=== PATIENT | female | born 1995 | race Caucasian/White ===

== ENCOUNTER 2018-02-10 22:56 | Emergency (ER) | payer MEDICAID, SELFPAY ==
[2018-02-10] VITALS (12 sets, daily range): BP systolic 103–117; BP diastolic 69–97; PULSE 93–161; RESP 16–37; TEMP 37.2; O2SAT 98–99
--- NOTE | 2018-02-10 23:32 | ED.GENADUL_ITS ---
Discharge Plan Disposition Patient Disposition: HOME Condition: Improving Discharge Details Chief Complaint: ETOHWithdr Clinical Impression: Behavior disturbance, Syncope, Alcohol intoxication Primary Care Provider: Oanh Austin ED Provider: Nellie Blackwell Home Meds and New Rx's Prescriptions: No Action No Known Home Meds RF: 0 Discharge Instructions Instructions: Syncope (ED), Alcohol Intoxication (ED) Additional Instructions: Do not drink alcohol in excessive amounts or quickly as it can have serious side effects such as vomiting, headache and increase risk of injury resulting in . Drink plenty of fluids and eat a well balanced diet and get plenty of rest. Follow-up with your primary care doctor in 1 week for reevaluation as needed. Return to the emergency department with any worsening or new concerns Discharge Data Discharge Date/Time-TO BE ENTERED AT DEPARTURE: 02/11/18 01:25 Discharge Physician: Nellie Blackwell Medical Decision Making MDM Narrative Medical decision making narrative: 22-year-old female with no past medical history who presents for tearful outburst and syncopal episode after drinking a large amount of vodka in a short period of time just prior to arrival. Friends place patient in a car and drove her here to the ED where she had a brief syncopal episode in the car. Patient was wheeled back to ED room screaming and crying in a wheelchair. Her heart rate on arrival 140s. 2310 -- EKG notes a rate of 120. Sinus tachycardia. No acute ST elevation or depression. On the monitor, blood pressure 103/88, oxygen saturation 99%, temperature 99. Patient appears hysterical screaming and crying to staff and friends in room. Friends are able to state that patient became emotional about hearing a male friend was going to have sex with another person and patient drank almost 1/5 of vodka within 40 seconds which occurred approximately 1 hour ago. They deny any injury. Patient was able to be redirected and calmed down. When asked if family would be coming to the ED, and when a male friend attempted to leave, patient became hysterical again and had to be calmed down. After this, and during evaluation, patient was smiling laughing and making casual conversation. We will do a workup for syncope but I suspect her symptoms are due to drinking a large amount of alcohol and being emotionally upset. Will place an IV, check labs, bolus IV fluids, urine and observe and reassess. Patient denied any drug use and friends denied patient taking any drugs and denied any injury so therefore I do not see an indication for a urine drug screen or imaging. 0130 -- labs reviewed and noted potassium 3, will replete. Alcohol 179. HCG qual negative. Remainder of labs unremarkable. Heart rate 98. Patient and friends are requesting to go home. Patient appears more alert and less intoxicated at this time. Patient instructed on the dangers of excessive alcohol binge drinking. Instructed to follow-up with primary care doctor and return to the ER if worse. HPI - General Adult General Mode of arrival: wheelchair . Date/Time Provider Initiated Documentation: 02/10/18 23:08 . Limitations to Documentation: other (intoxicated) . Information obtained by: patient (friends at bedside) . HPI Narrative: Patient is a 22-year-old female with no past medical history who presents for being very tearful followed by syncopal episode after drinking alcohol tonight. Friends state that patient heard that a male friend of hers was going to have sex with another person and patient became upset and drank almost a full bottle of 1/5 vodka within 40 seconds which occurred within the last hour. Patient denies suicidal or homicidal ideation. Patient states she has a previous history of suicide attempt several years ago with a drug overdose. Patient states she was not thinking about harming herself or suicide tonight. Friends state they think patient did this because she became emotional. Friend states that immediately after patient finished the alcohol she began crying and became hysterical . They put her in the car to take her to the emergency department and she had a syncopal episode after crying which lasted approximately 15 seconds and then she awoke and began crying again. They deny any head or other injury. Denies vomiting. Past medical history: Negative Surgical history: Eye surgery Social history: Drinks occasional alcohol on the weekends. Denies tobacco or drug use. Medications: Denies Allergies: NKDA Related Data Home Medications Medication Instructions Recorded Confirmed Unknown [No Known Home Meds] 02/10/18 02/10/18 Allergies Allergy/AdvReac Type Severity Reaction Status Date / Time No Known Allergies Allergy Unverified 02/10/18 23:10 General Stated Complaint: ETOHWithdr AROLDO: 3 Review of Systems Review of Systems All systems reviewed & are unremarkable except as noted in HPI and below Constitutional Denies chills, Denies excessive sweating, Denies fatigue, Denies fever(s), Denies weakness and Denies weight loss Eyes Patient Reports system reviewed and no additional complaints, except as docu and Denies blurry vision ENT Denies vertigo, Denies dizziness, Denies otalgia, Denies nasal congestion, Denies sore throat and Denies throat swelling Cardiovascular Denies chest pain, Denies syncope, Denies rapid heart rate and Denies dyspnea Respiratory Denies dyspnea Gastrointestinal Denies abdominal pain, Denies diarrhea and Denies vomiting Genitourinary Denies hematuria, Denies dysuria and Denies flank pain Musculoskeletal Denies back pain and Denies joint swelling Integumentary/Breasts Denies lesions and Denies rash Neurologic Denies behavioral changes, Denies confusion, Denies vertigo, Denies dizziness, Denies syncope and Denies weakness Psychiatric Denies behavioral changes, Denies confusion and Denies depression Endocrine Denies excessive sweating and Denies fatigue Hematologic/Lymphatic Denies easy bruising and Denies lymphadenopathy Allergic/Immunologic Denies throat swelling PFSH Family History Mother No problems noted. Father Diabetes Heart disease Surgical History Eye surgery Exam Const General: in distress (Screaming and crying in the wheelchair as being brought back to ED room) severe and intoxicated appearing Nutritional Appearance: overweight Orientation: alert, awake and oriented x3 HENMT Head: normal to inspection Ears: hearing grossly normal bilaterally, external ears normal and TM's normal bilaterally General nose exam: external nose normal Face and sinus: normal facial exam Mouth: oral mucosae normal Teeth and gingiva: dentition normal Throat: posterior oropharynx normal Eyes General: appearance normal, both eyes and all related structures Eyelids: eyelids normal Pupils: PERRL EOM: EOM intact bilaterally Neck Neck: normal visual inspection Lymphatic: no lymphadenopathy noted Chest Chest: normal inspection of the chest Resp Effort & Inspection: normal respiratory effort and able to speak in complete sentences Auscultation: clear to auscultation bilaterally Cardio Rate: tachycardic Rhythm: regular rhythm GI Inspection: normal to inspection Palpation: soft, not firm, no guarding, no hepatosplenomegaly, no masses and nontender Auscultation: normal bowel sounds Back/Spine/Pelvis Back: no CVA tenderness Skin General skin exam: no rashes or lesions noted Neuro General: alert and awake Speech: speech normal Gait: normal gait Motor: muscle tone normal throughout Sensory Exam: no sensory deficits noted Extrem General: normal to inspection, full ROM and normal capillary refill Psych Appearance: disheveled Speech and Movement: other (Intoxicated, screaming and crying multiple times during evaluation) Course Vital Signs Temperature 99.0 F 02/10/18 23:04 Pulse 144 H 02/10/18 23:04 Respiratory Rate 36 H 02/10/18 23:04 Blood Pressure 103/88 02/10/18 23:04 Pulse Oximetry 99 02/10/18 23:04 Temperature 99.0 F 02/10/18 23:04 Pulse 144 H 02/10/18 23:04 Respiratory Rate 36 H 02/10/18 23:04 Blood Pressure 103/88 02/10/18 23:04 Pulse Oximetry 99 02/10/18 23:04
[2018-02-10] MEDS: Normal Saline 1,000 ML 1000 ML IV (23:35)
[2018-02-10 23:40] LABS: Abs Immature Grans 0.03 k/cumm (0.0-0.09); Absolute Basophil Count 0.03 k/cumm (0.0-0.2); Absolute Eosinophil Count 0.07 k/cumm (0.0-0.7); Absolute Lymphocyte Count 4.91 k/cumm (1.2-3.4); Absolute Monocyte Count 0.61 k/cumm (0.11-0.7); Absolute Neutrophil Count 4.38 k/cumm (1.2-6.7); Basophils % 0.3; Eosinophils % 0.7; HCT 41.6 % (36.0-46.0); HGB 14.2 g/dL (12.0-15.5); Immature Grans % 0.3; Mean Corp. HGB Concentration 34.1 g/dL (32.0-36.0); Mean Corpuscular Hemoglobin 29.5 pg (27.0-33.0); Mean Corpuscular Volume 86.5 fL (80-95); Mean Platelet Volume 10.2 fL (8.0-11.0); Monocytes % 6.1; Neutrophils % 43.6; Platelet Count 277 x1000/uL (130-400); RBC 4.81 m/cumm (4.00-5.20); RBC Distribution Width 12.6 % (11.7-14.6); White Blood Cell Count 10.03 k/cumm (4.4-10.8)
[2018-02-10 23:50] LABS: Anion Gap 15.3 mmol/L (3-11); BUN 15 mg/dL (7-18); CO2 21.7 mmol/L (21.0-32.0); CREATININE 0.93 mg/dL (0.55-1.02); Calcium 8.9 mg/dL (8.5-10.1); Chloride 102 mmol/L (98-107); ETHANOL BLOOD 179.1 mg/dL (<3); Glucose 96 mg/dL (70-100); Sodium 139 mmol/L (136-145)
[2018-02-11] VITALS: PULSE 99; RESP 16; O2SAT 97
[2018-02-11 00:01] VITALS: BP 107/82; PULSE 103; PULSE 99; RESP 9; O2SAT 97
[2018-02-11 00:10] VITALS: PULSE 101; RESP 28; O2SAT 97
[2018-02-11 00:10] LABS: HCG Qual (Serum) Negative
[2018-02-11 00:16] VITALS: BP 105/73; PULSE 104; PULSE 98; RESP 21; O2SAT 100
[2018-02-11 00:20] VITALS: PULSE 103; RESP 13; O2SAT 100
[2018-02-11] MEDS: Potassium Chloride 20 MEQ TABCR 40 MEQ PO (01:13)
== END 2018-02-11 01:25 | disposition home or self-care (01) ==
PROVIDERS: Emergency Provider Physician Assistant; PCP Internal Medicine
DX: R55 Syncope and collapse (principal); F44.9 Dissociative and conversion disorder, unspecified; F10.188 Alcohol abuse with other alcohol-induced disorder; Y90.6 Blood alcohol level of 120-199 mg/100 ml; R00.0 Tachycardia, unspecified; E87.6 Hypokalemia
CPT/HCPCS: 36415; 80048; 81025; 93005; 96360; 99284; 80320; 84703; 85025; 93010

== ENCOUNTER 2018-02-17 10:18 | Outpatient (CLI) | payer MEDICAID, SELFPAY ==
--- NOTE | 2018-02-17 10:57 | DI.US_ITS ---
SYMPTOMS/DIAGNOSIS: LT BREAST PALPABLE MASS UPPER INNER QUAD 10:00 O'CLOCK LEFT BREAST ULTRASOUND: Palpable abnormalities are noted in the upper inner quadrant. In the 10:00 o' clock position, 3 cm from the nipple, there is a superficial simple cyst measuring 7 x 9 x 11 mm. In the 8:00 o'clock position, 2 cm from the nipple, there is a 5 mm simple cyst. An additional 5 mm cyst is seen in the 9:00 o' clock position 2 cm from the nipple. No suspicious masses are identified. There is an area of fatty tissue in the 10:00 o'clock position 3 cm from the nipple which is also palpable. IMPRESSION: Category 2, negative ultrasound with benign findings of simple cysts as well as a small fatty lobule or lipoma.
== END 2018-02-17 10:38 ==
PROVIDERS: PCP Internal Medicine; Visit Provider Nurse Practitioner Adult Health
DX: N63.22 Unspecified lump in the left breast, upper inner quadrant (principal); N60.12 Diffuse cystic mastopathy of left breast; D24.2 Benign neoplasm of left breast
CPT/HCPCS: 76642

== ENCOUNTER 2018-09-06 20:25 | Outpatient (REF) | payer MEDICAID, SELFPAY ==
[2018-09-06 20:16] LABS: Abs Immature Grans 0.01 k/cumm (0.0-0.09); Absolute Basophil Count 0.02 k/cumm (0.0-0.2); Absolute Eosinophil Count 0.04 k/cumm (0.0-0.7); Absolute Lymphocyte Count 2.63 k/cumm (1.2-3.4); Absolute Monocyte Count 0.36 k/cumm (0.11-0.7); Absolute Neutrophil Count 2.54 k/cumm (1.2-6.7); Basophils % 0.4; Eosinophils % 0.7; HCT 40.6 % (36.0-46.0); HGB 13.2 g/dL (12.0-15.5); Immature Grans % 0.2; Mean Corp. HGB Concentration 32.5 g/dL (32.0-36.0); Mean Corpuscular Hemoglobin 29.2 pg (27.0-33.0); Mean Corpuscular Volume 89.8 fL (80-95); Mean Platelet Volume 11.3 fL (8.0-11.0); Monocytes % 6.4; Neutrophils % 45.3; Platelet Count 251 x1000/uL (130-400); RBC 4.52 m/cumm (4.00-5.20)
[2018-09-06 21:12] LABS: ALT 15 U/L (12-78); AST 11 U/L (15-37); Albumin 3.6 g/dL (3.4-5.0); Alkaline Phosphatase 70 U/L (46-116); Anion Gap 9.5 mmol/L (3-11); BUN 16 mg/dL (7-18); Bilirubin, Total 0.2 mg/dL (0.2-1.0); CO2 27.5 mmol/L (21.0-32.0); CREATININE 0.74 mg/dL (0.55-1.02); Calcium 8.9 mg/dL (8.5-10.1); Chloride 103 mmol/L (98-107); Glucose 93 mg/dL (70-100); Potassium 4.2 mmol/L (3.5-5.1); Sodium 140 mmol/L (136-145); TSH (W/Ref FT4) 3.38 uIU/mL (0.358-3.74); Total Protein 7.4 g/dL (6.4-8.2)
[2018-09-08 10:58] LABS: Syphilis Serology (RPR) Negative (Negative)
[2018-09-08 11:23] LABS: HIV-1/2 Ag & Ab Screen Negative (NEGAT)
[2018-09-08 11:24] LABS: Hepatitis B Surface Ag Negative (NEGAT)
[2018-09-08 11:33] LABS: Hepatitis C Ab w Rflx HCV PCR Negative (NEGAT)
[2018-09-08 11:48] LABS: Hep B Core Antibody Negative (NEGAT)
[2018-09-08 12:37] LABS: HBs Antibody, Quant <3.1 mIU/mL; Hepatitis B Surface Ab Negative
[2018-09-08 15:15] LABS: Chlamydia Result Negative; GC Result Negative; Specimen Description URINE
== END 2018-09-06 20:45 ==
LOC: NCHCN 20:25
PROVIDERS: PCP Nurse Practitioner Family; Visit Provider Nurse Practitioner Family
DX: N92.0 Excessive and frequent menstruation with regular cycle (principal); Z11.4 Encounter for screening for human immunodeficiency virus [HIV]; Z11.59 Encounter for screening for other viral diseases; Z11.3 Encounter for screening for infections with a predominantly sexual mode of transmission
CPT/HCPCS: 80053; 86704; 86706; 86803; 87340; 87389; 87491; 87591; 84443; 85025; 86592

== ENCOUNTER 2018-09-18 17:29 | Outpatient (REF) | payer MEDICAID, SELFPAY | END 2018-09-18 17:49 | LOC: NCHCN 17:29 | PROVIDERS: PCP Nurse Practitioner Family; Visit Provider Family Medicine | DX: J02.9 Acute pharyngitis, unspecified (principal) | CPT/HCPCS: 87081 ==

== ENCOUNTER 2018-10-27 00:30 | Outpatient (CLI) | payer MEDICAID, SELFPAY ==
--- NOTE | 2018-10-27 07:51 | DI.US_ITS ---
SYMPTOM/DIAGNOSIS: DYSMENORRHEA, PELVIC PAIN, R10.2 PELVIC ULTRASOUND: Transabdominal and transvaginal exams were performed. The uterus measures 6.3 by 3.2 by 3.9 cm. The endometrial stripe measures 3 mm. The ovaries are normal in size and appearance with a few small follicles seen bilaterally. There is a trace amount of fluid near the right ovary. No hydronephrosis is seen. The bladder is unremarkable as visualized. SUMMARY: Pelvic ultrasound is within normal limits.
== END 2018-10-27 00:50 ==
PROVIDERS: PCP Nurse Practitioner Family; Visit Provider Nurse Practitioner Women's Health
DX: R10.2 Pelvic and perineal pain (principal); N94.6 Dysmenorrhea, unspecified
CPT/HCPCS: 76830; 76856

== ENCOUNTER 2018-11-22 13:22 | Outpatient (REF) | payer MEDICAID, SELFPAY | END 2018-11-22 13:42 | LOC: NCHCN 13:22 | PROVIDERS: PCP Nurse Practitioner Family; Visit Provider Nurse Practitioner | DX: J02.9 Acute pharyngitis, unspecified (principal) | CPT/HCPCS: 87077; 87070 ==

== ENCOUNTER 2018-11-23 14:28 | Emergency (ER) | payer MEDICAID, SELFPAY ==
[2018-11-23] VITALS (8 sets, daily range): BP systolic 97–110; BP diastolic 55–77; PULSE 89–139; RESP 14–24; TEMP 38.5; O2SAT 96–98
--- NOTE | 2018-11-23 14:41 | DI.CT_ITS ---
SYMPTOMS/DIAGNOSIS: BI-RASTAFARIAN HEADACHE, FEVER CRANIAL CT: A noncontrast enhanced examination was performed. There is no evidence of an intra/extra-axial hemorrhage. No mass is seen. The forman-white matter differentiation is intact. The ventricles are unremarkable. There is no evidence of a skull fracture. The paranasal sinuses are intact. There is no mastoid effusion. SUMMARY: Normal noncontrast cranial CT.
[2018-11-23] MEDS: Normal Saline Flush 10 ML SYR IVP (14:45)
--- NOTE | 2018-11-23 14:45 | ED.GENADUL_ITS ---
Discharge Plan Disposition Patient Disposition: HOME Condition: Improving Discharge Details Chief Complaint: Headache Clinical Impression: Headache Primary Care Provider: Erik Emerson ED Provider: Theo Potts Home Meds and New Rx's Prescriptions: New doxycycline hyclate 100 mg capsule 100 mg PO BID 14 Days Qty: 28 RF: 0 Discharge Instructions Instructions: General Headache (ED) Additional Instructions: For any worsening symptoms you should return immediately to the emergency department for reevaluation and reconsideration of lumbar puncture due to your fever and headache. Otherwise you should take your antibiotic twice daily as prescribed for the 2 weeks and anytime you were in the sun please use sunscreen. Please follow-up with your primary care provider next week for reassessment and evaluation of your further testing for tickborne illness. Stand Alone Forms: Work Release Referrals: Erik Emerson NP [Primary Care Provider] - 5 days Discharge Data Discharge Date/Time-TO BE ENTERED AT DEPARTURE: 11/23/18 17:32 Medical Decision Making <Jai Pool MD - Last Filed: 11/23/18 15:52> 23-year-old female presents with fever and headache for 2 days time. She is febrile to 38.5 & tachycardic to the 130s with a blood pressure 110/77, oxygenating normally. No gross neurologic deficits and no evidence of meningismus on exam. IV access established, patient given 2 L of fluid, ketorolac and acetaminophen. Would consider her differential diagnosis includes viral syndrome, migraine headache, sinusitis. Does not seem consistent with acute meningitis. Laboratories obtained: Urinalysis with positive leuk esterase and bacteria. CBC unremarkable with a white count of 5, hematocrit 40, platelets 180. Chemistries notable for sodium of 135, bicarb 23, anion gap of 12, BUN 16, creatinine 0.[address] scan of the head and sinuses without acute findings. Discussed with patient the utilization of lumbar puncture to exclude meningitis. I think her likelihood of acute bacterial meningitis is low. She refuses lumbar puncture. Patient to be given second liter of fluid, dexamethasone, Benadryl, small aliquot of hydromorphone and reevaluated. Please see oncoming providers note regarding patient's final impression and disposition. <Theo Potts NP - Last Filed: 11/23/18 21:32> After second round of medications patient states that she is feeling significantly better. Did re-discuss the recommendation for lumbar puncture given the patient is complaining of a fever and headache. Patient again refused LP at this time. Thoroughly discussed risk versus benefit of lumbar puncture at this time for assistance in evaluating for possible meningitis. Again after thorough discussion she states that she does not want a lumbar puncture at this time. With further speaking to patient about history she does state that she has been in the [place] a lot and has not noted any tick bites but does state that her boyfriend has had multiple ticks bites on him during the same timeframe. she does state that it could be a possibility that she had been bitten by a tick. Tick panel was already ordered after discussion of patient's case with Dr. Pool but knowing that she is been not feeling well for the past week and is seen primary care multiple times for similar symptoms I do feel that tickborne illness is a high probability. Due to this patient was started on doxycycline pending results. Thoroughly encouraged patient to return to the emergency department for any new or significant worsening of symptoms or any further concerns and she states understanding that she may need lumbar puncture to fully evaluate her condition. Patient appears stable with no new or worsening symptoms and states that she actually feels better after her last round of medication. She is alert and oriented and able to make decisions and refused treatment, and father is at bedside during all these discussions. After discussion of diagnosis and plan of care patient and father have no further needs, questions, or concerns and states clear understanding to return to the emergency department for any worsening symptoms. HPI <Jai Pool MD - Last Filed: 11/23/18 15:52> General Mode of arrival: ambulatory . Date/Time Provider Initiated Documentation: 11/23/18 14:29 . Limitations to Documentation: no limitations . History of Present Illness 23 year old F presents to the emergency department with the chief complaint of Headache for 2 days, described as moderate and severe, Quality is described as dull and constant, and is localized to the head. Patient reports no radiation. and it has been constant. No relieving factors improve symptom(s), No exacerbating factors reported . Patient notes fever/chills and headaches; denies syncope. Patient did receive the following treatments prior to arrival, none Related Data Home Medications Medication Instructions Recorded Confirmed doxycycline hyclate 100 mg PO BID 14 Days #28 cap 11/23/18 Previous Rx's Medication Instructions Recorded doxycycline hyclate 100 mg PO BID 14 Days #28 cap 11/23/18 Allergies Allergy/AdvReac Type Severity Reaction Status Date / Time No Known Allergies Allergy Unverified 10/12/18 13:07 General Stated Complaint: Headache AROLDO: 2 Review of Systems <Jai Pool MD - Last Filed: 11/23/18 15:52> Review of Systems No fall or trauma. No stiff neck. No antecedent illness. Positive sick contacts with her mother who had pneumonia. Patient denies cough. She does state history of migraines distant. 8 of 10 systems reviewed and otherwise - PFSH <Jai Pool MD - Last Filed: 11/23/18 15:52> Medical History Anxiety and depression (Acute) Borderline personality disorder (Acute) Dysmenorrhea (Acute) Fatigue (Acute) Heavy menstrual period (Acute) History of suicide attempt (Acute) Surgical History Eye surgery Family History Mother Endometriosis Father Diabetes Heart disease Sister Endometriosis Social History Smoking/Tobacco Use Status: Never Alcohol Intake: never Drug use: Never Do you feel safe at home: Yes Do you feel safe in your relationship?: Yes Exam <Jai Pool MD - Last Filed: 11/23/18 15:52> Narrative Exam Narrative: GEN: awake, alert, oriented 3. Pleasant, well groomed, interactive. HEAD: Normocephalic, atraumatic ENT: Mucous membranes dry, oropharynx unremarkable, External ear exam unremarkable EYES: PERRL, EOMI NECK: Full ROM, no NAYANA, no menigismus-supple and with full range of motion CHEST/RESP: Nontender, clear to auscultation bilateral, no wheeze/rhonchi/rales CARDIOVASCULAR: Regular and tachycardia, no murmur, rub kavya. 2+ Rad pulse bilateral ABDOMEN: Soft, nontender, no mass. +Bowel sounds EXT: Full ROM, no edema, no rash Neuro: Grossly normal neurologic exam, conversant, interactive. Psych: Speech fluent, thoughts congruent, affect normal Course <Jai Pool MD - Last Filed: 11/23/18 15:52> Vital Signs Temperature 38.5 C H 11/23/18 14:30 Pulse 139 H 11/23/18 14:30 Respiratory Rate 18 11/23/18 14:30 Blood Pressure 110/77 11/23/18 14:30 Pulse Oximetry 98 11/23/18 14:30 Temperature 38.5 C H 11/23/18 14:30 Temperature Source Skin 11/23/18 14:30 Pulse 139 H 11/23/18 14:30 Respiratory Rate 18 11/23/18 14:30 Respiratory Effort 11/23/18 14:39 Blood Pressure 110/77 11/23/18 14:30 Blood Pressure Position Sitting 11/23/18 14:30 Pulse Oximetry 98 11/23/18 14:30 Oxygen Delivery Method Room Air 11/23/18 14:30 Oxygen Flow Rate 0 11/23/18 14:30 Pain Level 8 11/23/18 14:38 Sign Out <Jai Pool MD - Last Filed: 11/23/18 15:52> Sign Out Data: Sign Out Comment: Follow-up response to medications and fluids, reexamination Last updated by Jai Pool MD at 11/23/18 15:53
[2018-11-23] MEDS: Ketorolac 30 MG/ML VIAL IVP (14:55)
[2018-11-23] MEDS: Acetaminophen 500 MG TAB 1000 MG PO (14:55)
[2018-11-23 14:56] LABS: Absolute Basophil Count 0.01 k/cumm (0.0-0.2); Absolute Lymphocyte Count 0.77 k/cumm (1.2-3.4); Absolute Monocyte Count 0.39 k/cumm (0.11-0.7); Absolute Neutrophil Count 4.07 k/cumm (1.2-6.7); Basophils % 0.2; HCT 40.2 % (36.0-46.0); HGB 13.5 g/dL (12.0-15.5); Lymphocytes % 14.7; Mean Corp. HGB Concentration 33.6 g/dL (32.0-36.0); Mean Corpuscular Hemoglobin 29.5 pg (27.0-33.0); Mean Platelet Volume 10.2 fL (8.0-11.0); Monocytes % 7.4; Neutrophils % 77.7; Platelet Count 180 x1000/uL (130-400); RBC 4.57 m/cumm (4.00-5.20); RBC Distribution Width 12.3 % (11.7-14.6); White Blood Cell Count 5.24 k/cumm (4.4-10.8)
[2018-11-23] MEDS: Normal Saline 1,000 ML 1000 ML IV ×2 (14:57→16:11)
[2018-11-23 15:11] LABS: ALT 18 U/L (12-78); AST 13 U/L (15-37); Albumin 3.6 g/dL (3.4-5.0); Alkaline Phosphatase 62 U/L (46-116); Anion Gap 12.2 mmol/L (3-11); BUN 16 mg/dL (7-18); Bilirubin, Total 0.4 mg/dL (0.2-1.0); CO2 23.8 mmol/L (21.0-32.0); CREATININE 0.97 mg/dL (0.55-1.02); Calcium 8.8 mg/dL (8.5-10.1); Chloride 99 mmol/L (98-107); Glucose 137 mg/dL (70-100); Potassium 3.6 mmol/L (3.5-5.1); Sodium 135 mmol/L (136-145); Total Protein 8.2 g/dL (6.4-8.2)
[2018-11-23 15:15] LABS: Bilirubin Negative (Negative); Blood Negative (Negative); Clarity Sl Cloudy; Glucose Negative (Negative); Ketones Negative (Negative); Leukocyte Esterase Trace (Negative); Nitrite Negative (Negative); Specific Gravity 1.025 (1.005-1.025); Urobilinogen 0.2 EU/dL (Up TO 0.2)
[2018-11-23 15:25] LABS: Bacteria Moderate HPF (Negative); C & S Indicated? No/Sq. Contamination; Epithelial Cells Many HPF (Negative); Mucus Moderate (Negative)
[2018-11-23] MEDS: diphenhydrAMINE 50 MG/ML VIAL 25 MG IVP (16:09)
[2018-11-23] MEDS: HYDROmorphone 2 MG/ML VIAL 0.5 MG IVP (16:10)
[2018-11-23] MEDS: Dexamethasone 4 MG/ML VIAL 8 MG IVP (16:10)
[2018-11-23] MEDS: Doxycycline Hyclate 100 MG CAP PO (17:25)
[2018-11-26 00:38] LABS: Anaplasma phagocytophilum Negative (Negative); B. miyamotoi PCR Negative (Negative); Babesia divergens/MO-1 Negative (Negative); Babesia duncani Negative (Negative); Babesia microti Negative (Negative); Ehrlichia chaffeensis Negative (Negative); Ehrlichia ewingii/canis Negative (Negative); Ehrlichia muris eauclairensis Negative (Negative)
[2018-11-27 11:51] LABS: Lyme Ab w Rflx to Lyme Confirm Negative
== END 2018-11-23 17:32 | disposition home or self-care (01) ==
PROVIDERS: Emergency Medicine; Emergency Provider Nurse Practitioner Family; PCP Nurse Practitioner Family
DX: R51 Headache (principal); R00.0 Tachycardia, unspecified
CPT/HCPCS: 36415; 80053; 81025; 87798; 96361; 96374; 96375; 99284; 70450; 70486; 81003; 81015; 85025; 86618; J1100; J1200; J1885

== ENCOUNTER 2019-01-04 12:38 | Outpatient (REF) | payer MEDICAID, SELFPAY ==
--- NOTE | 2019-01-04 10:00 | PAPFT_PTH ---
PATIENT: Stefania Linda LOC: [facility] U#:[id number] AGE/SX: 23/F ROOM: RE01/04/[address]: Erik Emerson : 1995 BED: DIS: 01/04/2019 SPEC #: [id number] RECD: 01/05/19 12:51 STATUS: FERNANDO REKai #: [id number] RACHID: 01/04/19 10:[address]: Erik Emerson DEPT: [facility] Cytology RECD BY: Gisel Chakraborty Tissues: 1 - CX/ENDOCX FOR PAP SMEARS Procedures: PAP THIN PREP/UVM Screening HPV DNA PROBE Comments: [id number]
== END 2019-01-04 12:58 ==
LOC: NCHCN 12:38
PROVIDERS: PCP Nurse Practitioner Family; Visit Provider Nurse Practitioner Family
DX: Z00.00 Encounter for general adult medical examination without abnormal findings (principal); Z12.4 Encounter for screening for malignant neoplasm of cervix; Z11.51 Encounter for screening for human papillomavirus (HPV)
CPT/HCPCS: 88142; 87624

== ENCOUNTER 2019-03-04 18:48 | Emergency (ER) | payer MEDICAID, SELFPAY ==
[2019-03-04 18:55] VITALS: BP 135/83; PULSE 97; RESP 16; TEMP 36.7; O2SAT 100
--- NOTE | 2019-03-04 19:05 | W.ED.GENAD ---
Discharge Plan Disposition Patient Disposition: HOME Condition: Improving Discharge Details Chief Complaint: Sorethroat Clinical Impression: Exudative pharyngitis Primary Care Provider: Erik Emerson ED Provider: Jai Pool Home Meds and New Rx's Prescriptions: No Action No Known Home Meds RF: 0 Discharge Instructions Instructions: Pharyngitis (ED) Additional Instructions: Tylenol and/or ibuprofen as needed for discomfort. Small, frequent sips of fluids and/or popsicles as needed to maintain hydration and for comfort. Return to the ER if you have drooling, worsening discomfort, unable to breathe, or any other acute concerns. Medical Decision Making 23-year-old female with a history of recurrent streptococcal pharyngitis who has plans for tonsillectomy in approximately 1 months time. Now with recurrent sore throat and exam that reveals an exudative pharyngitis. No evidence of abscess. She is tolerating liquids and solids by mouth, no drooling, no change to voice. Her vital signs are stable. Will place on a course of penicillin. She will follow-up with otolaryngology as planned. HPI General Mode of arrival: ambulatory. Date/Time Provider Initiated Documentation: 03/04/19 18:50. Limitations to Documentation: no limitations. Information obtained by: patient. History of Present Illness 23 year old F presents to the emergency department with the chief complaint of Recurrent sore throat, history of similar; plans for tonsillectomy, described as similar to prior episodes, Quality is described as dull and constant, and is localized to the mouth. Patient reports no radiation. Patient started experiencing this hour(s) and it has been constant. No relieving factors improve symptom(s), No exacerbating factors reported . Patient notes denies fever/chills, nausea/vomiting and shortness of breath. Patient did receive the following treatments prior to arrival, none Related Data Home Medications Medication Instructions Recorded Confirmed Unknown [No Known Home Meds] 03/04/19 03/04/19 Allergies Allergy/AdvReac Type Severity Reaction Status Date / Time No Known Allergies Allergy Unverified 03/04/19 18:59 General Stated Complaint: Sorethroat AROLDO: 4 Review of Systems Review of Systems Narrative: No drooling, no change to voice, no fever. 6 systems reviewed and otherwise negative [facility] Social History Smoking/Tobacco Use Status: Never Alcohol Intake: never Drug use: Never Substance use type: does not use Do you feel safe at home: Yes Do you feel safe in your relationship?: Yes Exam Narrative Exam Narrative: GEN: awake, alert, oriented 3. Pleasant, well groomed, interactive. HEAD: Normocephalic, atraumatic ENT: Mucous membranes moist, oropharynx with symmetrically swollen tonsils with white exudate, the uvula is midline. External ear exam unremarkable EYES: PERRL, EOMI NECK: Full ROM, anterior submandibular NAYANA, no menigismus CHEST/RESP: Nontender, clear to auscultation bilateral, no wheeze/rhonchi/rales CARDIOVASCULAR: RRR, no murmur, rub kavya. 2+ Rad pulse bilateral EXT: Full ROM, no edema, no rash Neuro: Grossly normal neurologic exam, conversant, interactive. Psych: Speech fluent, thoughts congruent, affect normal Course Vital Signs Vital signs: Vital Signs Temperature 36.7 C 03/04/19 18:55 Pulse 97 H 03/04/19 18:55 Respiratory Rate 16 03/04/19 18:55 Blood Pressure 135/83 03/04/19 18:55 Pulse Oximetry 100 03/04/19 18:55 Temperature 36.7 C 03/04/19 18:55 Temperature Source Skin 03/04/19 18:55 Pulse 97 H 03/04/19 18:55 Respiratory Rate 16 03/04/19 18:55 Blood Pressure 135/83 03/04/19 18:55 Blood Pressure Position Sitting 03/04/19 18:55 Pulse Oximetry 100 03/04/19 18:55 Oxygen Delivery Method Room Air 03/04/19 18:55 Oxygen Flow Rate 0 03/04/19 18:55 Pain Level 6 03/04/19 18:55
[2019-03-04] MEDS: Acetaminophen 500 MG TAB 1000 MG PO (19:32)
[2019-03-04] MEDS: Penicillin V POTASSIUM 500 MG TAB PO (19:32)
== END 2019-03-04 19:30 | disposition home or self-care (01) ==
LOC: ER 19:12
PROVIDERS: Emergency Provider Emergency Medicine; PCP Nurse Practitioner Family
DX: J02.9 Acute pharyngitis, unspecified (principal)
CPT/HCPCS: 99283

== ENCOUNTER 2019-03-17 18:46 | Emergency (ER) | payer MEDICAID, SELFPAY ==
[2019-03-17 18:54] VITALS: BP 107/53; PULSE 94; RESP 16; TEMP 36.7; O2SAT 98
[2019-03-17] MEDS: Normal Saline 1,000 ML 1000 ML IV (19:52)
[2019-03-17] MEDS: Ketorolac 15 MG/ML VIAL IVP (19:52)
[2019-03-17 20:17] LABS: Lactate 0.9 mmol/L (0.6-1.4)
[2019-03-17 20:24] LABS: Abs Immature Grans 0.02 k/cumm (0.0-0.09); Absolute Basophil Count 0.01 k/cumm (0.0-0.2); Absolute Lymphocyte Count 2.11 k/cumm (1.2-3.4); Absolute Monocyte Count 0.77 k/cumm (0.11-0.7); Absolute Neutrophil Count 5.93 k/cumm (1.2-6.7); Basophils % 0.1; HGB 12.9 g/dL (12.0-15.5); Immature Grans % 0.2; Lymphocytes % 23.9; Mean Corp. HGB Concentration 33.1 g/dL (32.0-36.0); Mean Corpuscular Hemoglobin 29.6 pg (27.0-33.0); Mean Corpuscular Volume 89.4 fL (80-95); Mean Platelet Volume 9.7 fL (8.0-11.0); Monocytes % 8.7; Neutrophils % 67.1; Platelet Count 271 x1000/uL (130-400); RBC 4.36 m/cumm (4.00-5.20); RBC Distribution Width 12.6 % (11.7-14.6); White Blood Cell Count 8.84 k/cumm (4.4-10.8)
[2019-03-17 20:33] LABS: ALT 17 U/L (14-59); AST 12 U/L (15-37); Albumin 3.5 g/dL (3.4-5.0); Alkaline Phosphatase 72 U/L (46-116); Anion Gap 9.4 mmol/L (3-11); BUN 21 mg/dL (7-18); Bilirubin, Total 0.5 mg/dL (0.2-1.0); CO2 28.6 mmol/L (21.0-32.0); CREATININE 0.84 mg/dL (0.55-1.02); Calcium 8.8 mg/dL (8.5-10.1); Chloride 103 mmol/L (98-107); Glucose 93 mg/dL (70-100); Potassium 3.7 mmol/L (3.5-5.1); Sodium 141 mmol/L (136-145); Total Protein 8.3 g/dL (6.4-8.2)
--- NOTE | 2019-03-17 21:23 | W.ED.GENAD ---
Discharge Plan Disposition Patient Disposition: HOME Discharge Details Chief Complaint: Sorethroat Clinical Impression: Pharyngeal pain, Post-op pain Primary Care Provider: Erik Emerson ED Provider: Delroy Dickson Home Meds and New Rx's Prescriptions: No Action acetaminophen 500 mg Tablet 1,000 mg PO Q8H PRN PRNRF: 0 oxycodone 5 mg Tablet 5 mg PO Q6H PRNRF: 0 Discharge Instructions Instructions: Pharyngitis (ED) Additional Instructions: I discussed your case with Dr. Alfonso who has reiterated the use of ibuprofen 600 mg every 6 hours for pain. Continue take the narcotic as needed. I have also given you a dose of steroids which should help with the discomfort. Viscous lidocaine to use for breakthrough pain. Return should symptoms worsen or you are unable to tolerate liquids. Referrals: [facility] [Outside] - 3 days (see Dr. Alfonso ) Discharge Data Discharge Date/Time-TO BE ENTERED AT DEPARTURE: 03/17/19 22:00 Medical Decision Making This is a nontoxic-appearing 23-year-old female status post tonsillectomy/adenoidectomy done by Dr. Alfonso 2 days ago. Her vitals are stable here in the emergency department. Her physical exam demonstrates posterior pharyngeal erythema. Uvula midline. She has some lymphadenopathy along the anterior cervical chain. She has minimal tenderness with movement of the neck no stiffness. She has normal lab work here in the emergency department. She is now urinating status post 1 L normal saline bolus. I have given her Toradol 15 mg IV push along with Solu-Medrol 125 mg IV push. I discussed case with Dr. Alfonso who has had several conversations with the patient's family regarding her supportive care at home. He has reiterated the use of Motrin along with the narcotic that he is provided. I also gave the patient a dose of viscous lidocaine which did provide some relief. Plan is to discharge home with lidocaine for breakthrough pain. We discussed return precautions and the need for follow-up. HPI General Date/Time Provider Initiated Documentation: 03/17/19 19:01. HPI Narrative: Patient is a 23-year-old female with no significant past medical history who is 2 days status post tonsillectomy and adenoidectomy performed at [facility] by Dr. Alfonso. Patient states that she has had significant pain and discomfort since the surgery. She had severe difficulty swallowing. She has been able to crush up the oxycodone 5 mg tabs that she was given and slowly eat Jell-O. Her pain is still significant. She is only urinated twice today because she is not drinking any water. She states that she feels achy all over and admits to intermittent fevers. She denies any muffled voice however has significant pain when trying to phonate. No neck stiffness. Related Data Home Medications Medication Instructions Recorded Confirmed acetaminophen 1,000 mg PO Q8H PRN PRN 03/17/19 03/17/19 oxycodone 5 mg PO Q6H PRN 03/17/19 03/17/19 Allergies Allergy/AdvReac Type Severity Reaction Status Date / Time No Known Allergies Allergy Unverified 03/17/19 18:59 General Stated Complaint: GenMedical AROLDO: 3 Review of Systems Constitutional Constitutional: Reports body ache(s), Denies chills, Reports fever(s), Denies lethargy and Reports poor appetite ENT Ears, Nose, Mouth, and Throat: Denies change in voice, Reports dysphagia, Denies mouth pain, Denies nasal congestion, Denies neck mass, Denies neck pain and Denies nose pain Gastrointestinal Gastrointestinal: Reports dysphagia, Denies nausea and Denies vomiting Musculoskeletal Musculoskeletal: Denies neck pain Hematologic/Lymphatic Hematologic/Lymphatic: Denies easy bleeding and Denies easy bruising PFSH Medical History Anxiety and depression (Acute) Borderline personality disorder (Acute) Dysmenorrhea (Acute) Fatigue (Acute) Heavy menstrual period (Acute) History of suicide attempt (Acute) Surgical History Eye surgery H/O adenoidectomy (Acute) Hx of tonsillectomy (Chronic) Family History Mother Endometriosis Father Diabetes Heart disease Sister Endometriosis Social History Smoking/Tobacco Use Status: Never Alcohol Intake: never Drug use: Never Substance use type: does not use Do you feel safe at home: Yes Do you feel safe in your relationship?: Yes Exam Const General: cooperative, healthy appearing, comfortable, no acute distress and well developed HENMT Throat: other (Moderate pharyngeal edema with erythema. Mild exudate noted. Uvula midline) Neck Neck: normal visual inspection, full ROM, no lymphadenopathy, no meningeal signs and trachea midline Resp Effort & Inspection: normal respiratory effort Auscultation: clear to auscultation bilaterally Cardio Rate: regular rate Rhythm: regular rhythm Pulses: normal peripheral pulses Skin General skin exam: no rashes or lesions noted Course Vital Signs Vital signs: Vital Signs Temperature 36.7 C 03/17/19 18:54 Pulse 94 H 03/17/19 18:54 Respiratory Rate 16 03/17/19 18:54 Blood Pressure 107/53 L 03/17/19 18:54 Pulse Oximetry 98 03/17/19 18:54 Temperature 36.7 C 03/17/19 18:54 Temperature Source Skin 03/17/19 18:54 Pulse 94 H 03/17/19 18:54 Respiratory Rate 16 03/17/19 18:54 Respiratory Effort Non-Labored 03/17/19 19:01 Blood Pressure 107/53 L 03/17/19 18:54 Blood Pressure Position Sitting 03/17/19 18:54 Pulse Oximetry 98 03/17/19 18:54 Oxygen Delivery Method Room Air 03/17/19 18:54 Oxygen Flow Rate 0 03/17/19 18:54 Pain Level 8 03/17/19 19:52 Lab/Test Results Lab/Test Results: Laboratory Tests Range/Units 03/17/19 03/17/19 03/17/19 19:45 19:45 19:45 WBC (4.4-10.8) k/cumm 8.84 RBC (4.00-5.20) m/cumm 4.36 Hgb (12.0-15.5) g/dL 12.9 Hct (36.0-46.0) % 39.0 MCV (80-95) fL 89.4 MCH (27.0-33.0) pg 29.6 MCHC (32.0-36.0) g/dL 33.1 RDW (11.7-14.6) % 12.6 Plt Count (130-400) x1000/uL 271 MPV (8.0-11.0) fL 9.7 Immature Gran % 0.2 Neutrophils % 67.1 Lymphocytes % 23.9 Monocytes % 8.7 Eosinophils % 0.0 Basophils % 0.1 Absolute Neutrophils (1.2-6.7) k/cumm 5.93 Absolute Lymphocytes (1.2-3.4) k/cumm 2.11 Absolute Monocytes (0.11-0.7) k/cumm 0.77 H Absolute Eosinophils (0.0-0.7) k/cumm 0.00 Absolute Basophils (0.0-0.2) k/cumm 0.01 Sodium (136-145) mmol/L 141 Potassium (3.5-5.1) mmol/L 3.7 Chloride (98-107) mmol/L 103 Carbon Dioxide (21.0-32.0) mmol/L 28.6 Anion Gap (3-11) mmol/L 9.4 BUN (7-18) mg/dL 21 H Creatinine (0.55-1.02) mg/dL 0.84 Estimated GFR/1.73 m2 (mL/min/1.73m2) >= 60.00 Glucose (70-100) mg/dL 93 Lactate (0.6-1.4) mmol/L 0.9 Calcium (8.5-10.1) mg/dL 8.8 Total Bilirubin (0.2-1.0) mg/dL 0.5 AST (15-37) U/L 12 L ALT (14-59) U/L 17 Alkaline Phosphatase (46-116) U/L 72 Total Protein (6.4-8.2) g/dL 8.3 H Albumin (3.4-5.0) g/dL 3.5
[2019-03-17] MEDS: methylPREDNISolone SUCC 125 MG VIAL IVP (21:39)
[2019-03-17] MEDS: Normal Saline Flush 10 ML SYR IVP (21:42)
--- NOTE | 2019-03-17 21:43 | NUR.NOTE ---
Nursing Note: oob to [id number] qs, Popsicle taken po without difficulty but slowly.
[2019-03-17] MEDS: Lidocaine 2% Viscous 15 ML CUP 45 ML PO (21:58)
== END 2019-03-17 22:00 | disposition home or self-care (01) ==
PROVIDERS: Emergency Provider Physician Assistant; PCP Nurse Practitioner Family
DX: G89.18 Other acute postprocedural pain (principal); J02.9 Acute pharyngitis, unspecified
CPT/HCPCS: 36415; 80053; 96361; 96374; 96375; 99284; 83605; 85025; J1885; J2930

== ENCOUNTER 2019-08-12 11:57 | Emergency (ER) | payer MEDICAID, SELFPAY ==
[2019-08-12 12:01] VITALS: BP 122/64; PULSE 93; RESP 16; TEMP 36.6; O2SAT 98
--- NOTE | 2019-08-12 13:00 | DI.RAD_ITS ---
EXAM: XR CHEST 2V PA LATERAL CLINICAL HISTORY: cough, SOB, flu like TECHNIQUE: 2D digital imaging was performed. COMPARISON: No exams were available for comparison FINDINGS: MEDIASTINUM: Normal. HEART: Normal. PULMONARY VASCULATURE: Normal. LUNGS: Clear. PLEURAL SPACE: No pleural effusion or pneumothorax. BONE:Normal. OTHER FINDINGS:Normal. IMPRESSION: No acute pulmonary findings. DATA REPOSITORY: RADIATION DOSE DELIVERED:
--- NOTE | 2019-08-12 14:06 | DI.VRAD_ITS ---
PROCEDURE INFORMATION: Exam: XR Chest, 2 Views Exam date and time: 08/12/2019 1:33 PM Age: 23 years old Clinical indication: Other: Cough, SOB, flu like TECHNIQUE: Imaging protocol: XR of the chest Views: 2 views. COMPARISON: No relevant prior studies available. FINDINGS: The lung long are clear bilaterally. No focal pulmonary consolidation is present. The cardiac silhouette is within normal limits. The costophrenic angles are sharp. The bony structures appear unremarkable. IMPRESSION: No evidence of acute cardiopulmonary disease. Dictated and Authenticated by: Rip James MD. Ordering:JEAN Fernandez MD
[2019-08-12 14:54] VITALS: BP 107/68; PULSE 88; RESP 16; TEMP 36.3; O2SAT 99
--- NOTE | 2019-08-14 23:29 | ED.GENADUL_ITS ---
Discharge Plan Disposition Patient Disposition: HOME Condition: Stable Discharge Details Chief Complaint: RespSymp Clinical Impression: Flu-like symptoms Primary Care Provider: Erik Emerson ED Provider: Rebecca Welch Home Meds and New Rx's Prescriptions: New albuterol sulfate [Proventil HFA] 90 mcg/actuation HFA aerosol inhaler 2 puff IH Q6H PRN (Reason: shortness of breath or wheezing) Qty: 8.5 RF: 0 benzonatate [Tessalon Perles] 100 mg capsule 100 mg PO TID PRN (Reason: cough) Qty: 10 RF: 0 Discharge Instructions Instructions: Viral Syndrome (ED) Additional Instructions: Drink plenty of fluids. Rest activities as tolerated. Use inhaler with spacer as prescribed. Use cough medication as prescribed Motrin or Tylenol if needed for aches or fever control. If you develop any increasing difficulty breathing, shortness of breath or ill feeling have reevaluation in the emergency room as discussed. Observe for any signs of dehydration. Return for any concerns of dehydration. Follow-up with primary care doctor if not improved in the next 3 to 5 days. Return for any worsening or concerns sooner if needed Stand Alone Forms: Work Release Discharge Data Discharge Date/Time-TO BE ENTERED AT DEPARTURE: 08/12/19 15:30 Medical Decision Making Is a 23-year-old patient presenting for complaints of flulike symptoms for the last 6 days. Patient reports predominantly headaches, fatigue, mild achiness, nasal congestion and cough. Patient reports cough is mildly worse in the last few days. Patient reports when walking her dog today she did note onset of shortness of breath. Patient does report when traveling she was accompanied by her friend. Her friends were all ill with similar symptoms and have subsequently improved, patient concerned as she is not entirely improved and cough seems worse. Patient denies abdominal complaints associated. On physical exam patient is well-appearing, vital signs reviewed and stable. We will plan to check chest x-ray. Patient is outside of the window for influenza treatment with Tamiflu therefore will hold testing. Patient denies any obvious covert exposures recently and has no travel to high risk areas. Given patient's flulike symptoms but lack of any obvious difficulty breathing. Chest x-ray unremarkable for acute process at this time. Offered inhaler as well as spacer with cough medication. 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 Patient feels com fortable with discharge plan. The patient was stable and requested discharge. Prior to discharge, my usual and customary return precautions were reviewed with the patient - this included follow-up instructions and reasons to return to the Emergency Department if conditions worsens, does not improve as expected, or other new concerns arise. HPI General Date/Time Provider Initiated Documentation: 08/12/19 12:22 . HPI Narrative: This is a 23-year-old patient presenting for complaints of flulike symptoms for the last 6 days. Patient has traveled to [place] as well as [place]. Patient reports she had onset of nasal congestion, headaches mild body aches and cough. Patient reports low-grade fevers noted through the week. Patient reports she traveled with her friends all home got sick with similar symptoms however they have all improved and patient symptoms persist. Patient does report mild loose stools but denies associated abdominal pain, nausea, vomiting. Patient does report low-grade fevers this week. Patient mostly concerned with persistence of cough. Patient reports now producing mild green phlegm. Patient denies difficulty breathing or wheezing. Patient does report mild shortness of breath when walking her dog noted today. Related Data Home Medications Medication Instructions Recorded Confirmed albuterol sulfate [Proventil HFA] 2 puff IH Q6H PRN #8.5 gm 08/12/19 benzonatate [Tessalon Perles] 100 mg PO TID PRN #10 cap 08/12/19 Previous Rx's Medication Instructions Recorded albuterol sulfate [Proventil HFA] 2 puff IH Q6H PRN #8.5 gm 08/12/19 benzonatate [Tessalon Perles] 100 mg PO TID PRN #10 cap 08/12/19 Allergies Allergy/AdvReac Type Severity Reaction Status Date / Time No Known Allergies Allergy Unverified 08/12/19 23:40 General Stated Complaint: RespSymp AROLDO: 4 Review of Systems All systems reviewed & are unremarkable except as noted in HPI and below Constitutional Constitutional: Reports chills, Reports fatigue, Reports fever(s) (Low-grade), Reports headache(s) and Reports malaise ENT Ears, Nose, Mouth, and Throat: Denies otalgia, Reports headache(s), Reports nasal congestion, Denies neck pain, Denies sinus pain, Denies sinus pressure and Denies sore throat Cardiovascular Cardiovascular: Denies dyspnea and Denies dyspnea on exertion Respiratory Respiratory: Reports cough, Denies pain on inspiration, Denies pain with cough, Denies dyspnea, Denies dyspnea on exertion and Denies wheezing Gastrointestinal Gastrointestinal: Denies abdominal pain, Denies diarrhea, Denies nausea and Denies vomiting Genitourinary Genitourinary: Denies dysuria and Denies urinary urgency Musculoskeletal Musculoskeletal: Denies neck pain Neurologic Neurologic: Reports headache(s) Endocrine Endocrine: Reports fatigue Allergic/Immunologic Allergic/Immunologic: Denies wheezing [facility] Medical History Anxiety and depression (Acute) Borderline personality disorder (Acute) Dysmenorrhea (Acute) Fatigue (Acute) Heavy menstrual period (Acute) History of suicide attempt (Acute) Social History Smoking/Tobacco Use Status: Never Alcohol Intake: never Drug use: Never Substance use type: does not use Do you feel safe at home: Yes Do you feel safe in your relationship?: Yes Exam Narrative Exam Narrative: CONST: Healthy appearing patient, in no acute distress. Well hydrated. Alert and oriented. HENMT: Head nomocephalic, normal to inspection. Atraumatic. Hearing grossly normal. TMs with mild erythema bilaterally with no significant bulging, mild effusion. Mild pharyngeal erythema without exudates. EYES: General normal appearance. Alignment normal. Eyelids normal. Conjunctiva normal. NECK: Normal visual inspection. FROM. Trachea midline. No Midline tenderness. Scant cervical lymphadenopathy present CHEST: Normal insepection of the chest. RESP: Normal respiratory effort. Speaking full sentences. No cough. No audible wheezing. No retractions. Breath sounds clear, full and equal bilaterally. No wheezing, rhonchi or rales CARDIO: No JVD. No murmur, regular rate and rhythm SKIN: Normal. Dry. No rashes. NEURO: Alert and awake. Speech clear. PSYCH: Normal affect. Cooperative. Course Vital Signs Vital signs: Vital Signs Temperature 36.6 C 08/12/19 12:01 Pulse 93 H 08/12/19 12:01 Respiratory Rate 16 08/12/19 12:01 Blood Pressure 122/64 08/12/19 12:01 Pulse Oximetry 98 08/12/19 12:01 Temperature 36.3 C L 08/12/19 14:54 Temperature Source Temporal Artery Scan 08/12/19 14:54 Pulse 88 08/12/19 14:54 Respiratory Rate 16 08/12/19 14:54 Respiratory Effort Non-Labored 08/12/19 12:05 Respiratory Depth Normal 08/12/19 12:05 Blood Pressure 107/68 08/12/19 14:54 Blood Pressure Position Sitting 08/12/19 12:01 Pulse Oximetry 99 08/12/19 14:54 Oxygen Delivery Method Room Air 08/12/19 14:54 Oxygen Flow Rate 0 08/12/19 14:54 Pain Level 0 08/12/19 12:01 Comment 08/12/19 14:54
== END 2019-08-12 15:30 | disposition home or self-care (01) ==
PROVIDERS: Emergency Provider Physician Assistant; PCP Nurse Practitioner Family
DX: J11.1 Influenza due to unidentified influenza virus with other respiratory manifestations (principal); Z11.59 Encounter for screening for other viral diseases
CPT/HCPCS: 87449; 99284; 71046; 99283

== ENCOUNTER 2020-10-10 21:16 | Outpatient (REF) | payer MEDICAID, SELFPAY ==
[2020-10-10 15:37] LABS: HCT 41.7 % (36.0-46.0); HGB 13.4 g/dL (11.2-15.7); MCH 29.2 pg (27.0-33.0); MCHC 32.1 % (32.0-36.0); MCV 90.8 fL (80-95); MPV 11.1 fL (8.0-11.0); Platelet Count 261 10^3/uL (130-400); RBC 4.59 10^6/uL (3.93-5.22); RDW 12.9 % (11.7-14.6); RDW-SD 41.6 fL; WBC 5.38 10^3/uL (4.4-10.8)
[2020-10-10 15:56] LABS: ALT 19 U/L (14-59); AST 11 U/L (15-37); Alkaline Phosphatase 69 U/L (46-116); Anion Gap 8.8 mmol/L (3-11); BUN 13 mg/dL (7-18); Bilirubin, Total 0.5 mg/dL (0.2-1.0); CO2 28.2 mmol/L (21.0-32.0); CREATININE 0.8 mg/dL (0.55-1.02); Calcium 9.6 mg/dL (8.5-10.1); Chloride 105 mmol/L (98-107); Glucose 84 mg/dL (74-106); Potassium 3.8 mmol/L (3.5-5.1); Sodium 142 mmol/L (136-145); TSH (W/Ref FT4) 1.93 uIU/mL (0.36-3.74); Total Protein 7.6 g/dL (6.4-8.2)
[2020-10-13 09:14] LABS: HBs Antibody, Quant 66.9 mIU/mL (See Note); Hepatitis B Surface Ab Positive (See Note)
[2020-10-13 09:24] LABS: Hepatitis B Surface Ag Negative (Negative)
[2020-10-13 10:06] LABS: HIV-1/2 Ag & Ab Screen Negative (Negative)
[2020-10-13 10:30] LABS: Hepatitis C Ab w Rflx HCV PCR Negative (Negative)
[2020-10-13 10:34] LABS: Syphilis Serology (RPR) Negative (Negative)
[2020-10-13 15:06] LABS: Chlamydia Result Negative (Negative); GC Result Negative (Negative)
== END 2020-10-10 21:17 | disposition home or self-care (01) ==
LOC: NCHCN 21:16
PROVIDERS: PCP Nurse Practitioner Family; Visit Provider Nurse Practitioner Family
DX: R51.9 Headache, unspecified (principal); R53.83 Other fatigue; F19.10 Other psychoactive substance abuse, uncomplicated; N92.0 Excessive and frequent menstruation with regular cycle; F41.8 Other specified anxiety disorders
CPT/HCPCS: 80053; 85027; 86706; 86803; 87340; 87389; 87491; 87591; 84443; 86592

== ENCOUNTER 2021-02-05 14:19 | Outpatient (REF) | payer MEDICAID, SELFPAY ==
--- NOTE | 2021-02-05 13:00 | PAPFT_PTH ---
PATIENT: Stefania Linda LOC: [facility] U#:[id number] AGE/SX: 25/F ROOM: RE02/05/[address]: TAMIE Manning : 1995 BED: DIS: 02/05/2021 SPEC #: [id number] RECD: 02/05/21 18:09 STATUS: FERNANDO REQ #: [id number] RACHID: 02/05/21 13:[address]: Unique Amador DEPT: [facility] Cytology RECD BY: Gisel Chakraborty ENTERED: 02/05/21 18:09 SP TYPE: PAPFT OTHR DR: Erik Emerson Tissues: 1 - CX/ENDOCX FOR PAP SMEARS Procedures: PAP THIN PREP/UVM Screening Comments: [id number]
[2021-02-06 14:36] LABS: Chlamydia Result Negative (Negative); GC Result Negative (Negative)
== END 2021-02-05 14:20 | disposition home or self-care (01) ==
LOC: LBN 14:19
PROVIDERS: PCP Nurse Practitioner Family; Visit Provider Nurse Practitioner Family
DX: R30.0 Dysuria; Z12.4 Encounter for screening for malignant neoplasm of cervix; Z11.3 Encounter for screening for infections with a predominantly sexual mode of transmission
CPT/HCPCS: 87077; 87491; 87591; 88142; 87086; 87186

== ENCOUNTER 2021-02-17 06:24 | Emergency (ER) | payer MEDICAID, SELFPAY ==
[2021-02-17 06:30] VITALS: BP 125/64; PULSE 102; RESP 18; TEMP 36.6; O2SAT 100
--- NOTE | 2021-02-17 06:32 | W.ED.GENAD ---
Discharge Plan Disposition Patient Disposition: HOME Condition: Good Discharge Details Clinical Impression: Urinary tract infection Primary Care Provider: Erik Emerson ED Provider: Dale Bravo Home Meds and New Rx's Prescriptions: New cephalexin 500 mg tablet 500 mg PO QID 7 Days Qty: 28 RF: 0 No Action prenat.vits,susy,[id number] Tablet 1 tab PO DAILY RF: 0 Discharge Instructions Instructions: Urinary Tract Infection in Women (ED) Additional Instructions: At this time you have evidence of a urinary tract infection. Please take the antibiotic as directed. Please drink cranberry juice or cranberry concentrate to help decrease the effect of the UTI. Please drink plenty fluids to stay well-hydrated. If you notice any worsening of your symptoms, or any new symptoms such as vomiting, diarrhea, fever, chills, shortness of breath, chest pain, numbness, weakness, or fainting , please return immediately to the emergency department for reevaluation. Please follow up with your OB doctor as soon as possible for reassessment and reevaluation. As always, it was a pleasure participating in your medical care today. Stand Alone Forms: Work Release Referrals: Erik Emerson, COMPUTER TRAINING SPECIALIST [Primary Care Provider] - Medical Decision Making This is a 25-year-old female who is currently 8 weeks who is G1, P0 who presents today for urinary frequency and mild burning. Patient states that she was treated for urinary tract infection about 12 days ago, she completed her course of Macrobid. She tolerated this well which resolved her symptoms, then yesterday her symptoms began again. She denies any chest pain, vomiting, vaginal discharge. She denies any other complaints. Review of her records indicate that she had E. coli that was pansensitive at that time. Patient has no other complaints at this time. No other modifying factors. Physical exam demonstrates nontender abdomen, no flank or CVA tenderness. Suspect recurrent mild UTI. Will change antibiotic coverage to Keflex, get a urinalysis, recommend close follow-up on an outpatient basis. 7 AM Patient does demonstrate evidence of urinary tract infection. We will give Keflex. Recommend close follow-up, cranberry concentrate use. Discussed red flags which to return. I have extensively reviewed the treatment plan and discharge instructions with the patient. I have addressed all patient concerns at this time. The patient was made aware of what symptoms to monitor for that would warrant a return to the emergency department. Discussed the plan with the patient, they demonstrate verbal understanding and agreement with our assessment and plan at this time. The documentation in this chart was dictated using Zeppelin dictation software. Please excuse any dictation errors. HPI General Date/Time Provider Initiated Documentation: 02/17/21 06:25. HPI Narrative: This is a 25-year-old female who is currently 8 weeks who is G1, P0 who presents today for urinary frequency and mild burning. Patient states that she was treated for urinary tract infection about 12 days ago, she completed her course of Macrobid. She tolerated this well which resolved her symptoms, then yesterday her symptoms began again. She denies any chest pain, vomiting, vaginal discharge. She denies any other complaints. Review of her records indicate that she had E. coli that was pansensitive at that time. Patient has no other complaints at this time. No other modifying factors. Related Data Home Medications Medication Instructions Recorded Confirmed prenat.vits,susy,[id number] 1 tab PO DAILY 02/05/21 02/17/21 cephalexin 500 mg PO QID 7 Days #28 tab 02/17/21 Previous Rx's Medication Instructions Recorded cephalexin 500 mg PO QID 7 Days #28 tab 02/17/21 Allergies Allergy/AdvReac Type Severity Reaction Status Date / Time No Known Allergies Allergy Unverified 02/17/21 06:33 General AROLDO: 4 Review of Systems All systems reviewed & are unremarkable except as noted in HPI and below PFSH Medical History (Updated 02/17/21 @ 06:35 by Dale Bravo DO) Anxiety and depression Borderline personality disorder Dysmenorrhea Fatigue Heavy menstrual period History of suicide attempt Surgical History Eye surgery H/O adenoidectomy Hx of tonsillectomy Family History Mother Endometriosis Father Diabetes Heart disease Sister Endometriosis Social History Smoking/Tobacco Use Status: Never Smoking risk assessment performed?: Yes Alcohol Intake: never Drug use: Never Substance use type: does not use Do you feel safe at home: Yes Do you feel safe in your relationship?: Yes Exam Narrative Exam Narrative: 1.Const: Well-nourished, Well-developed, appearing stated age 2.Eyes: PERRL, no conjunctival injection, and symmetrical lids. 3.ENT: Atraumatic external nose and ears. Moist MM. Neck: Symmetric, trachea midline, No thyromegaly. 4.CVS: +S1/S2, No murmurs or gallops. Peripheral pulses 2+ and equal in all extremities. Brisk capillary refill in all extremities. 5.RESP: Unlabored respiratory effort. Clear to auscultation bilaterally. No wheezes rales or rhonchi, no flank or CVA tenderness no suprapubic tenderness. 6.GI: Soft, Nontender/Nondistended, No hepatosplenomegaly. No guarding or rebound. 7.MSK: Normocephalic/Atraumatic, Extremities w/o deformity or ttp No cyanosis or clubbing, Normal movement of all extremities 8.Skin: Warm, Dry. No rashes or lesions. 9.Neuro: pheresis nurse II-XII grossly intact. Sensation grossly intact, no focal neurologic deficits. 10.Psych: (AAO) x3. Appropriate mood and affect
[2021-02-17 06:41] LABS: Bilirubin Negative (Negative); Blood Negative (Negative); Clarity Sl Cloudy (Clear); Glucose Negative (Negative); Ketones Negative (Negative); Leukocyte Esterase Moderate (Negative); Nitrite Negative (Negative); Urobilinogen 0.2 EU/dL (Up TO 0.2)
[2021-02-17 06:52] LABS: RBC 0-2 HPF (0-2)
[2021-02-17 06:53] LABS: Bacteria Few HPF (Negative); C & S Indicated? Yes; Casts Negative LPF (Negative); Crystals Negative HPF (Negative); Epithelial Cells Few HPF (Negative); Mucus Negative (Negative)
--- NOTE | 2021-02-17 09:20 | CMACTNOTE_ITS ---
- If Service Date Differs Date of service: 02/17/21 Time of Service: 09:[address] Blackwell, ED provider, receives a phone call from Stefania advising that she received notification that the cephalexin prescribed to her earlier this morning is not covered by her insurance company. ALTAGRACIA contacts Stefania [facility] pharmacy, and speaks with Corrine, pharmacy resource tech. Corrine resubmits the prescription to Medicaid and receives approval. ALTAGRACIA then telephones Stefania at the phone number on file but there is no answer. A message is left advising her that the prescription is all set and can be picked up at [facility] anytime.
== END 2021-02-17 07:00 | disposition home or self-care (01) ==
PROVIDERS: Emergency Provider Student in an Organized Health Care Education/Training Program; PCP Nurse Practitioner Family
DX: O26.891 Other specified pregnancy related conditions, first trimester (principal); N39.0 Urinary tract infection, site not specified; B96.89 Other specified bacterial agents as the cause of diseases classified elsewhere
CPT/HCPCS: 99283; 81003; 81015; 87086

== ENCOUNTER 2021-02-26 18:04 | Outpatient (REF) | payer MEDICAID, SELFPAY | END 2021-02-26 18:05 | disposition home or self-care (01) | LOC: LBN 18:04 | PROVIDERS: PCP Nurse Practitioner Family; Visit Provider Obstetrics & Gynecology Gynecology | DX: R30.0 Dysuria (principal) | CPT/HCPCS: 87086 ==

== ENCOUNTER 2021-03-20 18:13 | Outpatient (REF) | payer MEDICAID, SELFPAY ==
[2021-03-20 19:06] LABS: *AMPHETAMINES SCREEN URINE Negative (Negative); *BARBITURATES SCREEN URINE Negative (Negative); *BENZODIAZEPINES SCREEN URINE Negative (Negative); Cannabinoids THC Negative (Negative); Cocaine Screen,Urine Negative (Negative); METHADONE URINE SCREEN Negative (Negative); OPIATES URINE SCREEN Negative (Negative)
[2021-03-20 19:34] LABS: Tricyclic Antidepressants Negative (Negative)
[2021-03-26 11:45] LABS: Buprenorphine Negative ng/mL (Cutoff: 5.0)
== END 2021-03-20 18:14 | disposition home or self-care (01) ==
LOC: LBN 18:13
PROVIDERS: PCP Nurse Practitioner Family; Visit Provider Advanced Practice Midwife
DX: Z34.91 Encounter for supervision of normal pregnancy, unspecified, first trimester (principal)
CPT/HCPCS: 80307; 87077; 87086; 87186; 87480; 87510; 87660

== ENCOUNTER 2021-03-23 03:01 | Outpatient (CLI) | payer MEDICAID, SELFPAY ==
[2021-03-23 12:22] LABS: Kit/Specimen SENT
[2021-03-23 12:44] LABS: Abs Immature Grans 0.04 10^3/uL (0.0-0.06); Absolute Basophil Count 0.02 10^3/uL (0.0-0.2); Absolute Eosinophil Count 0.02 10^3/uL (0.0-0.7); Absolute Lymphocyte Count 2.01 10^3/uL (1.2-3.4); Absolute Monocyte Count 0.42 10^3/uL (0.1-0.8); Absolute Neutrophil Count 5.05 10^3/uL (1.2-6.7); Basophils % 0.3; Eosinophils % 0.3; HGB 12.2 g/dL (11.2-15.7); Immature Grans % 0.5; Lymphocytes % 26.6; MCH 29.3 pg (27.0-33.0); MCV 88.7 fL (80-95); MPV 9.9 fL (8.0-11.0); Monocytes % 5.6; Neutrophils % 66.7; Nucleated RBC 0 %; Platelet Count 232 10^3/uL (130-400); RBC 4.17 10^6/uL (3.93-5.22); RDW 13.2 % (11.7-14.6); RDW-SD 42.3 fL; WBC 7.56 10^3/uL (4.4-10.8)
[2021-03-23 12:58] LABS: Glucose,1 Hr (Glucola) 99 mg/dL (80-140)
[2021-03-23 13:12] LABS: TSH (W/Ref FT4) 2.07 uIU/mL (0.36-3.74)
[2021-03-24 10:19] LABS: Hepatitis C Ab w Rflx HCV PCR Negative (Negative)
[2021-03-24 10:32] LABS: Varicella IgG Antibody Negative (See Note)
[2021-03-24 10:39] LABS: HIV-1/2 Ag & Ab Screen Negative (Negative)
[2021-03-24 11:19] LABS: Hepatitis B Surface Ag Negative (Negative)
[2021-03-24 11:45] LABS: Rubella IgG Ab (UVM) Positive (See Note)
[2021-03-24 15:37] LABS: Syphilis Total Ab w/Reflex Nonreactive (Nonreactive)
[2021-03-30 13:20] LABS: Result Summary NEGATIVE; Specimen WB Whole Blood
== END 2021-03-23 03:02 | disposition home or self-care (01) ==
LOC: LBO 03:01
PROVIDERS: PCP Nurse Practitioner Family; Visit Provider Advanced Practice Midwife
DX: Z34.91 Encounter for supervision of normal pregnancy, unspecified, first trimester (principal)
CPT/HCPCS: 82950; 86787; 86803; 86850; 86900; 86901; 87340; 87389; 81220; 84443; 85025; 86762; 86780

== ENCOUNTER 2021-05-05 01:31 | Outpatient (CLI) | payer MEDICAID, SELFPAY ==
--- OUTSIDE RECORDS SUMMARY | 2021-05-04 00:58 | XMS_ITS ---
:1995 Author Care Team Providers Name Role Phone [facility] MEDICAL RECORDS OTHER [phone] JUDY GREEN Primary Care Provider [phone] Allergies Code Code System Name Reaction Severity Status Onset NKDA ? Medications Name Status Start Date Stop Date ? ? Adderall 20 mg tablet Active ? Not availa ble Take 1 tablet twice a day by oral route. zolpidem 5 mg tablet Completed ? 01/27/2021 take 1-2 PO night of sleep study if needed Problems Name Status Onset Date Source ? Anxiety Disorder Active 10/29/2020 ? Borderline Personality Disorder Active 10/29/2020 ? Substance Abuse Active 10/29/2020 ? Dysmenorrhea Active 10/29/2020 ? Fatigue Active 10/29/2020 ? Headache Active 10/29/2020 ? History of Attempted Suicide Active 10/29/2020 ? Family History of Alcoholism Active 10/29/2020 ? Body Mass Index 40+ - Severely Obese Active 10/29/2020 ? Daytime Somnolence Active 10/30/2020 ? Procedures None recorded. Results Lab Results Date Name Specimen Result Interpretation Description Value Range Status Address ? 01/06/2017 Venipuncture BLD ? Venpn* ? ? Final [facility] (Internal) : [address] 01/06/2017 Culture, Blood BLD ? Final microbio ? Fin al [facility] results Hospital Lab (Internal) : [address] 01/06/2017 BMP, Serum or S High g/r 118 74-106 Final [facility] Plasma mg/dL mg/dL [facility] L [facility] (Internal) : [address] ? ? S ? Bun 15 mg/dL 7-17 Final [facility] mg/dL [facility] L [facility] (Internal) : [address] ? ? S ? Crea 0.80 0.52-1.0 Final [facility] mg/dL 4 mg/dL [facility] : [address] ? ? S ? Ca 9.3 8.4-10.2 Final [facility] mg/dL mg/dL [facility] (Internal) : [address] ? ? S Low Na 135 137-145 Final [facility] mmol/L mmol/L [facility] (Internal) : [address] ? ? S ? K 3.5 3.5-5.1 Final [facility] mmol/L mmol/L [facility] (Internal) : [address] ? ? S ? Cl 102 98-107 Final [facility] mmol/L mmol/L [facility] (Internal) : [address] ? ? S ? Tco2 22.0 22.0-30. Final [facility] mmol/L 0 mmol/L [facility] (Internal) : [address] 01/06/2017 Lactic Acid, S ? La 0.7 0.7-2.1 Final [facility] Blood mmol/L mmol/L [facility] (Internal) : [address] 01/06/2017 Culture, Blood BLD ? Final microbio ? Fin al [facility] results Hospital Lab (Internal) : [address] 01/06/2017 Neutrophil BLD ? Anc-manual 13.05 ? Padmini l [facility] Count, 10*3/uL [facility] Lab (Anc), Blood (Int ernal): [address] 01/06/2017 Differential, BLD High Polys 90 % 40-75 % Final [facility] Manual, Blood [facility] : [address] ? ? BLD ? Bands 0 % 0-5 % Final [facility] (Internal) : [address] ? ? BLD Low Lymphs 8 % 20-50 % Final [facility] L ab (Internal) : [address] ? ? BLD ? [place] 2 % 2-10 % Final [facility] L ab (Internal) : [address] ? ? BLD ? Eos 0 % 0-6 % Final [facility] L ab (Internal) : [address] ? ? BLD ? Baso 0 % 0-1 % Final [facility] (Internal) : [address] ? ? BLD ? Atyp Lymph 0 % ? Final [facility] (Internal) : [address] ? ? BLD ? Plts, Est. adequate adequate Final N orth [facility] (Internal) : [address] ? ? BLD ? RBC normal normal Final [facility] (Internal) : [address] 01/06/2017 CBC W/ Auto BLD High Wbc 14.5 5.0-10.0 Final [facility] Diff 10*3/uL 10*3/uL [facility] (Internal) : [address] ? ? BLD ? Rbc 4.55 4.10-5.3 Final [facility] 10*6/uL 0 [facility] 10*6/uL Hospital Lab (Internal) : [address] ? ? BLD ? Hgb 12.6 12.0-16. Final [facility] g/dL 0 g/dL [facility] (Internal) : [address] ? ? BLD ? Hct 38.6 % 37.0-47. Final [place] 0 % [facility] (Internal) : [address] ? ? BLD ? Mcv 84.8 fL 80.0-96. Final [facility] 0 fL [facility] (Internal) : [address] ? ? BLD ? Mch 27.7 pg 26.0-32. Final [facility] 0 pg [facility] (Internal) : [address] ? ? BLD ? Mchc 32.6 31.0-35. Final [facility] g/dL 0 g/dL [facility] (Internal) : [address] ? ? BLD ? Rdw 13.1 % 11.5-14. Final [facility] 5 % [facility] (Internal) : [address] ? ? BLD ? Plt 205 130-450 Final [facility] 10*3/uL 10*3/uL [facility] (Internal) : [address] 01/06/2017 Streptococcus THRT ? Final microbio ? Padmini l [facility] Screen results Hospital Lab (Internal) : [address] 08/31/2016 CMP, Serum or S ? g/r 96 mg/dL 74-106 Padmini l [facility] Plasma mg/dL [facility] ([facility] : [address] ? ? S ? Bun 15 mg/dL 7-17 Final [facility] mg/dL [facility] ([facility] : [address] ? ? S ? Crea 0.70 0.52-1.0 Final [facility] mg/dL 4 mg/dL [facility] ([facility]) : [address] ? ? S ? Ca 9.4 8.4-10.2 Final [facility] mg/dL mg/dL [facility] ([facility] : [address] ? ? S ? Na 139 137-145 Final [facility] mmol/L mmol/L [facility] ([facility]) : [address] ? ? S ? K 3.6 3.5-5.1 Final [facility] mmol/L mmol/L [facility] ([facility]) : [address] ? ? S ? Cl 102 98-107 Final [facility] mmol/L mmol/L [facility] ([facility]) : [address] ? ? S ? Tco2 26.0 22.0-30. Final [facility] mmol/L 0 mmol/L [facility] ([facility] : [address] ? ? S ? Tp 8.0 g/dL 6.3-8.2 Final [facility] g/dL [facility] ([facility] : [address] ? ? S ? Alb 4.3 g/dL 3.5-5.0 Final [facility] g/dL [facility] ([facility] : [address] ? ? S ? Tbil 0.4 0.2-1.3 Final [facility] mg/dL mg/dL [facility] ([facility] : [address] ? ? S ? Alp 85 U/L 50-136 Final [facility] U/L [facility] : [address] ? ? S ? Alt (Sgpt) 26 U/L 9-52 U/L Final [facility] ([facility]) : [address] ? ? S ? Ast (Sgot) 24 U/L 14-36 Final [facility] U/L [facility] : [address] 08/31/2016 CBC W/ Auto BLD High Wbc 11.3 5.0-10.0 Final North Diff 10*3/uL 10*3/uL [facility] : [address] ? ? BLD ? Rbc 4.76 4.10-5.3 Final North 10*6/uL 0 [facility] 10*6/uL Hospital Lab (Internal) : [address] ? ? BLD ? Hgb 13.3 12.0-16. Final [facility] g/dL 0 g/dL [facility] ([facility] : [address] ? ? BLD ? Hct 40.5 % 37.0-47. Final [facility] 0 % [facility] : [address] ? ? BLD ? Mcv 85.1 fL 80.0-96. Final [facility] 0 fL [facility] ([facility] : [address] ? ? BLD ? Mch 27.9 pg 26.0-32. Final [facility] 0 pg [facility] ([facility] : [address] ? ? BLD ? Mchc 32.8 31.0-35. Final [facility] g/dL 0 g/dL [facility] ([facility] : [address] ? ? BLD ? Rdw 12.9 % 11.5-14. Final [facility] 5 % [facility] ([facility] : [address] ? ? BLD ? Plt 338 130-450 Final [facility] 10*3/uL 10*3/uL [facility] ([facility]) : [address] ? ? BLD ? Anc 8.30 ? Final [facility] 10*3/uL [facility] ([facility]) : [address] ? ? BLD ? Neutro 73.5 % 40.0-75. Final [facility] 0 % [facility] Hospital ab (Internal) : [address] ? ? BLD ? Lymph 20.5 % 20.0-50. Final [facility] 0 % [facility] Hospital ab (Internal) : [address] ? ? BLD ? [place] 5.0 % 2.0-10.0 Final North % [facility] ab (Internal) : [address] ? ? BLD Low Eos 0.4 % 1.0-6.0 Final North % [facility] ab (Internal) : [address] ? ? BLD ? Baso 0.1 % 0.0-1.0 Final North % [facility] ab (Internal) : [address] ? ? BLD ? Ig 0.5 % 0.0-0.9 Final [facility] % [facility] ab (Internal) : [address] 08/25/2016 Culture, Urine UR ? Final microbio ? Fin al [facility] results Hospital Lab (Internal) : [address] 08/25/2016 sensitivities[ MISC ? Sens* ? ? Final North I] [facility] (Internal) : [address] 08/25/2016 Urinalysis, UR ABNORMAL UA-WBC 3-5 0-3 Final [facility] Microscopic [hpf] [hpf] Count [facility] (Internal) : [address] ? ? UR ? UA-RBC 0-2 0-2 Final [facility] [hpf] [hpf] [facility] (Internal) : [address] t ? ? UR ABNORMAL UA-bacteri few none Final Nor th a [hpf] seen [facility] [hpf] [facility] (Internal) : [address] ? ? UR ABNORMAL UA-epithel few none Final Nor th ial [hpf] seen [facility] [hpf] [facility] (Internal) : [address] ? ? UR ABNORMAL UA-mucus few none Final North [hpf] seen Country [hpf] [facility] (Internal) : [address] 08/25/2016 Urinalysis, UR ? UA-color pale pale Final [facility] Dipstick, yellow yellow [facility] (Internal) : [address] [place] ? ? UR ABNORMAL UA-appear hazy clear Final [facility] ab (Internal) : [address] [place] ? ? UR ? UA-spec 1.010 1.003-1. Final [facility] Grav 035 [facility] L ab (Internal) : [address] [place] ? ? UR ? UA-pH 7.5 [pH] 4.6-8.0 Final [facility] [pH] [facility] L ab (Internal) : [address] [place] ? ? UR ABNORMAL UA-leuk trace negative Final [facility] L ab (Internal) : [address] [place] ? ? UR ? UA-nitrite negative negative Final N orth [facility] L ab (Internal) : [address] [place] ? ? UR ? UA-prot negative negative Final [facility] L ab (Internal) : [address] [place] ? ? UR ? UA-gluc negative negative Final [facility] ab (Internal) : [address] [place] ? ? UR ? UA-ketone negative negative [facility] [address] [place] ? ? UR ? UA-urobil normal normal Final [facility] ab (Internal) : [address] [place] ? ? UR ? UA-bili negative negative Final [facility] ab (Internal) : [address] t ? ? UR ? UA-blood negative negative Final [facility] ab (Internal) : [address] t 08/25/2016 UR ? Hcgu negative negative Final [facility] Test, Urine Count [facility] L ab (Internal) : [address] t 08/25/2016 Neutrophil BLD ? Anc-manual 8.29 ? Padmini [place] [facility] Count, 10*3/uL [facility] Lab (Anc), Blood (Int ernal): [address] t 08/25/2016 Differential, BLD High Polys 90 % 40-75 % Final [facility] Manual, Blood Cou [facility] L ab (Internal) : [address] ? ? BLD ? Bands 0 % 0-5 % Final [facility] L ab (Internal) : [address] ? ? BLD Low Lymphs 7 % 20-50 % Final [facility] L ab (Internal) : [address] t ? ? BLD ? [place] 3 % 2-10 % Final [facility] L ab (Internal) : [address] ? ? BLD ? Eos 0 % 0-6 % Final [facility] L ab (Internal) : [address] t ? ? BLD ? Baso 0 % 0-1 % Final [facility] L ab (Internal) : [address] ? ? BLD ? Atyp Lymph 0 % ? Final [facility] L ab (Internal) : [address] t ? ? BLD ? Plts, Est. adequate adequate Final N [facility] L ab (Internal) : [address] t ? ? BLD ? RBC normal normal Final [facility] L ab (Internal) : [address] t 08/25/2016 BMP, Serum or S ? g/r 104 74-106 Final [facility] Plasma mg/dL mg/dL [facility] L [facility] (Internal) : [address] t ? ? S ? Bun 17 mg/dL 7-17 Final [facility] mg/dL [facility] (Internal) : [address] t ? ? S ? Crea 0.70 0.52-1.0 Final [facility] mg/dL 4 mg/dL [facility] (Internal) : [address] t ? ? S ? Ca 9.5 8.4-10.2 Final [facility] mg/dL mg/dL [facility] L ab (Internal) : [address] t ? ? S ? Na 140 137-145 Final [facility] mmol/L mmol/L [facility] L [facility] (Internal) : [address] t ? ? S ? K 4.2 3.5-5.1 Final [facility] mmol/L mmol/L [facility] L [facility] (Internal) : [address] t ? ? S ? Cl 100 98-107 Final [facility] mmol/L mmol/L [facility] L [facility] (Internal) : [address] ? ? S ? Tco2 24.0 22.0-30. Final [facility] mmol/L 0 mmol/L [facility] L [facility] (Internal) : [address] 08/25/2016 CBC W/ Auto BLD ? Wbc 9.2 5.0-10.0 Final North Diff 10*3/uL 10*3/uL [facility] L ab (Internal) : [address] ? ? BLD ? Rbc 5.23 4.10-5.3 Final North 10*6/uL 0 [facility] 10*6/uL Hospital Lab (Internal) : [address] ? ? BLD ? Hgb 14.9 12.0-16. Final [facility] g/dL 0 g/dL [facility] L [facility] (Internal) : [address] t ? ? BLD ? Hct 44.3 % 37.0-47. Final North 0 % [facility] (Internal) : [address] t ? ? BLD ? Mcv 84.7 fL 80.0-96. Final North 0 fL [facility] L [facility] (Internal) : [address] t ? ? BLD ? Mch 28.5 pg 26.0-32. Final North 0 pg [facility] L [facility] (Internal) : [address] t ? ? BLD ? Mchc 33.6 31.0-35. Final [facility] g/dL 0 g/dL [facility] (Internal) : [address] t ? ? BLD ? Rdw 12.9 % 11.5-14. Final North 5 % [facility] (Internal) : [address] t ? ? BLD ? Plt 317 130-450 Final [facility] 10*3/uL 10*3/uL [facility] L [facility] (Internal) : [address] t Past Encounters 01/28/2021 Fatigue Shannan Burk NP: [address] [place] [id number], Ph. 10/30/2020 Daytime Somnolence; Periodic Leg Movemen ts of Sleep Shannan Burk NP: [address] [place] [address], [place] [phone], Ph. Social History Tobacco Smoking Status Never Smoker Vaccine List None recorded. Plan of Care Reminders Provider Appointments None ? ? recorded. Lab None ? ? recorded. Referral None ? ? recorded. Procedures None ? ? recorded. Surgeries None ? ? recorded. Imaging None ? ? recorded. Vitals Height Weight BMI Blood Pressure 157.48 cm 98.16 kg 39.6 kg/m2 111/71 mm[Hg]
--- NOTE | 2021-05-05 07:30 | DI.US_ITS ---
Exam(s) US OB 2-3 TRIMESTER EXAM: US OB 2-3 TRIMESTER CLINICAL HISTORY: anatomy and placental location,Z34.92. TECHNIQUE: Transabdominal obstetrical ultrasound performed. COMPARISON: No exams were available for comparison FINDINGS: Transabdominal obstetrical ultrasound performed. FINDINGS: Number of fetuses: One. position: Breech. heart rate: 147 bpm. Placental location: There is a posterior grade 1 placenta. No evidence of previa. The placental tip is 3.2 cm from the os. Amniotic fluid index: Visually, amount of fluid is within normal limits. ANATOMICAL SURVEY: Within normal limits. BIOMETRIC DATA: BPD: 3.8cm consistent with 17 weeks 5 days. HC: 14.9cm consistent with 18 weeks. AC: 11.6cm consistent with 17 weeks 3 days. FL: 2.5cm consistent with 17 weeks 3 days. Cisterna Magna: 3.9 mm Cerebellum: 1.8 cm EFW: 196 grms 17% Composite Age: 17 weeks 5 days EDC by US: 10/08/2021 Heart Rate: 147BPM IMPRESSION: 1. Single live intrauterine gestation as above. 2. Normal anatomic survey. DATA REPOSITORY:
== END 2021-05-05 01:51 ==
PROVIDERS: PCP Nurse Practitioner Family; Visit Provider Advanced Practice Midwife
DX: Z34.92 Encounter for supervision of normal pregnancy, unspecified, second trimester (principal)
CPT/HCPCS: 76805

== ENCOUNTER 2022-02-05 09:15 | Outpatient (REF) | payer MEDICAID, SELFPAY ==
[2022-02-05 17:06] LABS: HCT 37.4 % (36.0-46.0); HGB 11.7 g/dL (11.2-15.7); MCH 27.1 pg (27.0-33.0); MCHC 31.3 % (32.0-36.0); MCV 87 fL (80-95); MPV 10.8 fL (8.0-11.0); Platelet Count 276 10^3/uL (130-400); RBC 4.31 10^6/uL (3.93-5.22); RDW 13.8 % (11.7-14.6); RDW-SD 43.6 fL; WBC 5.12 10^3/uL (4.4-10.8)
[2022-02-05 17:52] LABS: Calculated LDL 137 mg/dL (<100); Cholesterol 213 mg/dL (<200); HDL Cholesterol 50 mg/dL (40-60); Triglyceride 134 mg/dL (<150)
== END 2022-02-05 09:16 | disposition home or self-care (01) ==
LOC: NCHCN 09:15
PROVIDERS: PCP Nurse Practitioner Family; Visit Provider Physician Assistant
DX: R23.3 Spontaneous ecchymoses; Z13.220 Encounter for screening for lipoid disorders
CPT/HCPCS: 80061; 85027

== ENCOUNTER 2023-07-07 15:40 | Outpatient (REF) | payer MEDICAID, SELFPAY ==
[2023-07-07 17:26] LABS: ALT 12 U/L (14-59); AST 9 U/L (15-37); Albumin 3.4 g/dL (3.4-5.0); Alkaline Phosphatase 68 U/L (46-116); Anion Gap 10.3 mmol/L (3-11); BUN 6 mg/dL (7-18); Bilirubin, Total 0.2 mg/dL (0.2-1.0); CO2 27.7 mmol/L (21.0-32.0); CREATININE 0.8 mg/dL (0.55-1.02); Calcium 9.1 mg/dL (8.5-10.1); Chloride 102 mmol/L (98-107); Estimated GFR 104.15 (mL/min/1.73m2); FREE T4 1.12 ng/dL (0.76-1.46); Glucose 103 mg/dL (74-106); Potassium 3.8 mmol/L (3.5-5.1); Sodium 140 mmol/L (136-145); TSH 3.71 uIU/mL (0.36-3.74); Total Protein 7.3 g/dL (6.4-8.2)
[2023-07-07 17:37] LABS: Calculated LDL 70 mg/dL (<100); Cholesterol 139 mg/dL (<200); HDL Cholesterol 43 mg/dL (40-60); Triglyceride 131 mg/dL (<150)
== END 2023-07-07 15:41 | disposition home or self-care (01) ==
LOC: NCHCN 15:40
PROVIDERS: Visit Provider Physician Assistant
DX: E78.5 Hyperlipidemia, unspecified (principal); F41.8 Other specified anxiety disorders; E66.8 Other obesity; R79.89 Other specified abnormal findings of blood chemistry
CPT/HCPCS: 80053; 80061; 83036; 84439; 84443

== ENCOUNTER 2023-09-26 14:53 | Outpatient (REF) | payer MEDICAID, SELFPAY | END 2023-09-26 14:54 | disposition home or self-care (01) | LOC: NCHCN 14:53 | PROVIDERS: PCP Physician Assistant; Visit Provider Physician Assistant | DX: R30.0 Dysuria (principal) | CPT/HCPCS: 87086 ==

== ENCOUNTER 2024-11-22 16:36 | Outpatient (REF) | payer MEDICAID, SELFPAY ==
[2024-11-22 15:51] LABS: Abs Immature Grans 0.01 10^3/uL (0.0-0.06); Absolute Basophil Count 0.02 10^3/uL (0.0-0.2); Absolute Eosinophil Count 0.04 10^3/uL (0.0-0.7); Absolute Lymphocyte Count 2.06 10^3/uL (1.2-3.4); Absolute Monocyte Count 0.42 10^3/uL (0.1-0.8); Absolute Neutrophil Count 3.74 10^3/uL (1.2-6.7); Basophils % 0.3 %; Eosinophils % 0.6 %; HCT 36.8 % (36.0-46.0); HGB 11.3 g/dL (11.2-15.7); Immature Grans % 0.2 %; Lymphocytes % 32.8 %; MCH 25.6 pg (27.0-33.0); MCHC 30.7 % (32.0-36.0); MCV 83 fL (80-95); MPV 10.4 fL (8.0-11.0); Monocytes % 6.7 %; Neutrophils % 59.4 %; Platelet Count 308 10^3/uL (130-400); RBC 4.41 10^6/uL (3.93-5.22); RDW 14.3 % (11.7-14.6); RDW-SD 43.6 fL; WBC 6.29 10^3/uL (4.4-10.8)
[2024-11-22 17:13] LABS: ALT 23 U/L (14-59); AST 11 U/L (15-37); Albumin 3.7 g/dL (3.4-5.0); Alkaline Phosphatase 87 U/L (46-116); Anion Gap 10.1 mmol/L (3-11); BUN 13 mg/dL (7-18); Bilirubin, Total 0.3 mg/dL (0.2-1.0); CO2 24.9 mmol/L (21.0-32.0); CREATININE 0.8 mg/dL (0.55-1.02); Calcium 9.1 mg/dL (8.5-10.1); Chloride 103 mmol/L (98-107); Estimated GFR 102.86 (mL/min/1.73m2); FREE T4 1.07 ng/dL (0.76-1.46); Glucose 105 mg/dL (74-106); Sodium 138 mmol/L (136-145); TSH 4.38 uIU/mL (0.36-3.74); Total Protein 7.6 g/dL (6.4-8.2)
== END 2024-11-22 16:37 | disposition home or self-care (01) ==
LOC: NCHCN 16:36
PROVIDERS: PCP Physician Assistant; Visit Provider Physician Assistant
DX: R53.82 Chronic fatigue, unspecified (principal)
CPT/HCPCS: 80053; 84439; 84443; 85025

== ENCOUNTER 2025-04-26 12:16 | Outpatient (REF) | payer MEDICAID, SELFPAY ==
[2025-04-26 22:04] LABS: TSH 5.33 uIU/mL (0.55-4.78)
== END 2025-04-26 12:17 | disposition home or self-care (01) ==
LOC: NCHCN 12:16
PROVIDERS: PCP Physician Assistant; Visit Provider Physician Assistant
DX: E07.81 Sick-euthyroid syndrome (principal)
CPT/HCPCS: 84439; 84443